=== PATIENT | female | born 1945 | race Two or more races ===

== ENCOUNTER 2022-09-13 10:16 | Inpatient (IN) | payer OTHER ==
[~2022-09-13] VITALS: Ht 157.5 cm; Wt 59.9 kg
[2022-09-13] MEDS ORDERED: ENALAPRIL MALEA10 MG PO (14:12)
[2022-09-16] MEDS ORDERED: VITAMIN D3250 MCG (13:04)
[2022-09-16] MEDS ORDERED: ALENDRONATE SOD70 MG (13:04)
[2022-09-18] MEDS ORDERED: HYOSCYAMINE0.125 M1 SL (10:25)
== END 2022-09-18 12:28 | disposition home or self-care (01) | DRG 330 ==
LOC: O/R 09-16 07:57 → SURH 09-16 09:15
PROVIDERS: ADMIT Surgery; ATTEND Surgery
PROC: 0W9G4ZZ Drainage of Peritoneal Cavity, Percutaneous Endoscopic Approach (ICD-10-PCS; 2022-09-16)
PROC: 0DJD8ZZ Inspection of Lower Intestinal Tract, Via Natural or Artificial Opening Endoscopic (ICD-10-PCS; 2022-09-16)
PROC: 0DTE4ZZ Resection of Large Intestine, Percutaneous Endoscopic Approach (ICD-10-PCS; principal; 2022-09-16 09:15)
DX: K57.32 Diverticulitis of large intestine without perforation or abscess without bleeding (principal); K56.690 Other partial intestinal obstruction; K56.699 Other intestinal obstruction unspecified as to partial versus complete obstruction; Z20.822 Contact with and (suspected) exposure to COVID-19; I10 Essential (primary) hypertension; E11.9 Type 2 diabetes mellitus without complications; Z79.4 Long term (current) use of insulin